=== PATIENT | male | born 1970 | race Caucasian/White ===

== ENCOUNTER 2018-08-04 21:36 | Emergency (ER) | payer SELFPAY ==
[~2018-08-04] VITALS: Ht 180.3 cm; Wt 129.3 kg
[2018-08-04 21:48] VITALS: BP 122/76
[2018-08-05] MEDS ORDERED: KETOROLAC TROMETH 60MG/2ML VIAL IM ONE (03:15)
[2018-08-05] MEDS ORDERED: methylPREDNISolone SOD SUCC 125 MG/2 ML VL IM ONE (03:15)
== END 2018-08-05 04:03 | disposition home or self-care (01) ==
LOC: ER 21:38
DX: S13.9XXA Sprain of joints and ligaments of unspecified parts of neck, initial encounter (principal); M62.838 Other muscle spasm; V43.52XA Car driver injured in collision with other type car in traffic accident, initial encounter; Y93.89 Activity, other specified; Y99.8 Other external cause status; Y92.410 Unspecified street and highway as the place of occurrence of the external cause
CPT/HCPCS: 70450; 72125; 72131; 96372; 99284; J1885; J2930